=== PATIENT | male | born 1945 | race Caucasian/White ===

== ENCOUNTER → 2016-09-28 | Outpatient (CLI) | payer OTHER, MEDICARE ==
--- NOTE | 2016-09-28 12:38 | DX ---
PA and Lateral Chest Clinical Indications: Bronchitis in a 70-year-old male. Comparison: June 16, 2013. Findings: No focal pulmonary consolidation is identified. Minimal basilar opacities are presumably at electasis.. There is hyperexpansion seen with flattening of the hemidiaphragms noted. .Peribronchial thickening is noted. The heart size and pulmonary vascularity are normal. Pleural surfaces and bony t horax are negative for acute abnormality. Aortic tortuosity is noted which can be associated with sys temic hypertension. Impression: 1. Findings suggestive of COPD/chronic bronchitis are noted. 2. See above report for additional findings.
== END ==
LOC: BMCIMAGING 11:16
PROVIDERS: ATTEND Internal Medicine
DX: R91.8 Other nonspecific abnormal finding of lung field (principal)

== ENCOUNTER 2017-03-09 05:25 | Inpatient (IN) | payer OTHER, MEDICARE ==
--- NOTE | 2017-03-08 16:29 | GHP ---
[f rep st] PREOP HISTORY AND PHYSICAL DATE OF ADMISSION: 03/09/2017 HISTORY: Andres is a pleasant 71-year-old gentleman who has had a very long history over 20 years of low back pain. More recently, his symptoms have changed and have also become predominantly left lower extremity pain. The pain starts in the sciatic notch and radiates toward the anterior thigh and the left anterior knee. In the distant past, the patient also had right lower extremity pain. The patient denies any paresthesias. On a visual analog scale of 1-10 his daily pain is an 8. Patient denies any loss of strength, footdrop or loss of bowel or bladder control. Treatments have included an epidural steroid injection, Medrol Dosepak, physical therapy, back brace, anti-inflammatories and chiropractics. SOCIAL HISTORY: Negative for tobacco use and positive for social use of alcohol. The patient enjoys skiing, fly fishing and biking. FAMILY HISTORY: Significant for cancer. PAST MEDICAL HISTORY: Significant for cataracts, gastroesophageal reflux, hypercholesterolemia, bilateral hearing loss and a left Mejia syndrome. PAST SURGICAL HISTORY: Right total knee arthroplasty and cataract surgery. ALLERGIES: None. MEDICATIONS: Lipitor, omeprazole and oxycodone p.r.n. REVIEW OF SYSTEMS: Negative for a 10-point review of pertinent positives. PHYSICAL EXAMINATION: VITAL SIGNS: The patient weighs 218 pounds and is 6 feet 2 inches tall. CARDIAC: Regular rate and rhythm without detectable murmur , rub or gallop. LUNGS: Clear to auscultation. He has no wheezing or rhonchi. NEUROLOGIC EXAMINATION: Shows bilateral lower extremity strength to be 5/5 throughout with the exception of the left quadriceps, 4+5. Light touch is diminished along the medial aspect of the left knee, but does not radiate below the knee. Reflexes are 1/4 for patellar and Achilles reflexes are absent bilaterally. Straight leg raising is negative x2. Evaluation of his spine shows the patient to have a list to the right. He is tender to palpation in the left sciatic notch. Toes are bilaterally downgoing on Babinski exam and there is no clonus. He also has no evidence of footdrop. RADIOGRAPHIC STUDIES: MRI of the lumbar spine and plain films were reviewed. The patient has mild to moderate degenerative disk disease at L2-3. L3-4 shows a grade 1 degenerative spondylolisthesis with bilateral foraminal stenosis and severely profound central stenosis. L4-5 shows severe central stenosis as well. IMPRESSION: 1. Profound spinal stenosis at L3-4 and severe stenosis L4-5 with neurogenic claudication. 2. Left L3 and L4 radiculopathy with quadriceps weakness. 3. Grade 1 degenerative spondylolisthesis at L3-4. PLAN: Andres has elected to proceed with surgery given his symptoms have not improved and are quite disabling. The patient will undergo an L3-4, L4-5 laminectomy, transforaminal lumbar interbody fusion with posterior fusion and instrumentation using segmental instrumentation. The patient understands the potential risks, benefits, and possible complications including, but not limited to dural tear with CSF leak, meningitis, nerve root injury, partial or complete paralysis, infection, need for further surgery, nonunion, junctional breakdown, cauda equina syndrome, DVT, PE, pneumonia, stroke, heart attack, hemorrhage, blindness, and . His questions have been answered thoroughly. The patient will be n.p.o. after midnight tonight. I would anticipate approximately a 3-night hospital stay including the day of surgery. He may require some home health services postoperatively as well. Copy requested to: S[facility]NEY /[id number]/MODL MTDD
[2017-03-09] MEDS ORDERED: ceFAZolin 2 GM/DEXTROSE 100 ML IV ONE (06:00)
[2017-03-09] MEDS ORDERED: LIDOCAINE 1% 2 ML INJ ID PRN (06:15)
[2017-03-09] MEDS ORDERED: LR 1,000 ML IV ONE (06:15)
[2017-03-09] MEDS ORDERED: LIDOCAINE 1% 2 ML INJ ONE (06:22)
[2017-03-09] MEDS ORDERED: MIDAZOLAM 2 MG/2 ML VIAL IVP ONE (07:00)
--- NOTE | 2017-03-09 07:00 | PDANEPAE ---
ANE History of Present Illness Spinal stenosis ANE Past Medical History - Cardiovascular History Hx Hypertension: No Hx Arrhythmias: No Hx Chest Pain: No Hx Coronary Artery / Peripheral Vascular Disease: No Hx CHF / Valvular Disease: No Hx Palpitations: No Cardiovascular History Comment: HYPERLIPIDEMIA - Pulmonary History Hx COPD: No Hx Asthma/Reactive Airway Disease: No Hx Recent Upper Respiratory Infection: No Hx Oxygen in Use at Home: No Hx Sleep Apnea: No Sleep Apnea Screening Result - Last Documented: Positive Pulmonary History Comment: PNEUMONIA 25 YRS AGO - Neurologic History Hx Cerebrovascular Accident: No Hx Seizures: No Hx Dementia: No - Endocrine History Hx Diabetes: No - Renal History Hx Renal Disorders: No - Liver History Hx Hepatic Disorders: No - Neurological & Psychiatric Hx Hx Neurological and Psychiatric Disorders: No - Cancer History Hx Cancer: Yes Cancer History Comment: BASAL CELL - MOHS X4 - Congenital Disorder History Hx Congenital Disorders: No - GI History Hx Gastrointestinal Disorders: Yes Gastrointestinal History Comment: ACID REFLUX. BARRETS ESOPHAGUS - Other Health History Other Health History: NEG - Chronic Pain History Chronic Pain: Yes (BACK PAIN & LEG PAIN) - Surgical History Prior Surgeries: TKA R. CATARACTS EDUARDO ANE Review of Systems - Exercise capacity METS (RN): 4 METS ANE Patient History - Allergies Allergies/Adverse Reactions: No Known Allergies Allergy (Unverified 03/01/17 16:06) - Home Medications Home Medications: Aspirin 03/08/17 [Last Taken Unknown] Atorvastatin Calcium 03/08/17 [Last Taken 03/09/17 04:00] CO Q-10 03/08/17 [Last Taken Unknown] Omeprazole 03/08/17 [Last Taken 03/09/17 04:00] - NPO status NPO Since - Liquids (Date): 03/08/17 NPO Since - Liquids (Time): 19:00 NPO Since - Solids (Date): 03/08/17 NPO Since - Solids (Time): 18:30 - Smoking Hx Smoking Status: Never smoked - Family Anes Hx Family Hx Anesthesia Complications: NEG ANE Labs/Vital Signs - Vital Signs Blood Pressure: 137/88 Heart Rate: 62 Respiratory Rate: 16 O2 Sat (%): 94 Height: 186.69 cm Weight: 95.254 kg ANE Physical Exam - Airway Neck exam: FROM Mallampati Score: Class 2 Mouth exam: normal dental/mouth exam - Pulmonary Pulmonary: no respiratory distress - Cardiovascular Cardiovascular: regular rate and rhythym - ASA Status ASA Status: I ANE Anesthesia Plan Anesthesia Plan: general endotracheal anesthesia
[2017-03-09] MEDS ORDERED: fentaNYL 100 MCG/2 ML INJ ONE ×3 (07:09→08:32)
[2017-03-09] MEDS ORDERED: ROCURONIUM 50 MG/5 ML VIAL ONE ×2 (07:10→08:17)
[2017-03-09] MEDS ORDERED: LIDOCAINE 2% 5 ML SDV ONE (07:10)
[2017-03-09] MEDS ORDERED: DEXAMETHASONE 4 MG/ML VIAL ONE (07:10)
[2017-03-09] MEDS ORDERED: ONDANSETRON 4 MG/2 ML VIAL ONE ×2 (07:10→14:06)
[2017-03-09] MEDS ORDERED: PROPOFOL 200 MG/20 ML VIAL ONE ×2 (07:10→11:48)
[2017-03-09] MEDS ORDERED: THROMBIN (BOVINE) 20,000 UNIT VIAL TP ONE (07:15)
[2017-03-09] MEDS ORDERED: AVITENE POWDER 1 GM JAR TP ONE (07:15)
[2017-03-09] MEDS ORDERED: BACITRACIN 50,000 UNITS/10 ML SYR IRR ONE ×2 (07:16→11:20)
[2017-03-09] MEDS ORDERED: BUPIVACAINE 0.25% 30 ML SDV ONE (07:17)
[2017-03-09] MEDS ORDERED: CITRATE DEXTROSE SOLN 500 ML BAG ONE ×2 (07:17→07:45)
[2017-03-09] MEDS ORDERED: BUPIVACAINE/EPI 0.5% 30 ML SDV ONE (07:17)
[2017-03-09] MEDS ORDERED: PROPOFOL/EMULSION 500 MG/50 ML BOTTLE IV ONE (07:19)
[2017-03-09] MEDS ORDERED: REMIFENTANIL HCL 1 MG VIAL ONE ×3 (07:19→12:36)
--- NOTE | 2017-03-09 07:19 | PDHPUP ---
History & Physical Update H&P update statement: This history and physical update is based on an assessment of the patient which was completed after admission or registration (within 24 hours), but prior to the surgery/procedure. H&P update: H&P reviewed & patient examined, no change in patient's condition since H&P completed
[2017-03-09] MEDS ORDERED: diphenhydrAMINE 25 MG CAP PO PRN (07:57)
[2017-03-09] MEDS ORDERED: BISACODYL 10 MG SUPP PR PRN (07:57)
[2017-03-09] MEDS ORDERED: MAGNESIUM HYDROXIDE 30 ML UDCUP PO PRN (07:57)
[2017-03-09] MEDS ORDERED: LACTULOSE 20 GM/30 ML UDCUP PO PRN (07:57)
[2017-03-09] MEDS ORDERED: DIAZEPAM 10 MG/2 ML SYR IVP PRN (08:06)
[2017-03-09] MEDS ORDERED: HYDROCODONE/APAP 5/325 TAB PO PRN (08:06)
[2017-03-09] MEDS ORDERED: morphINE PF 10 MG/10 ML INJ ONE (08:32)
[2017-03-09] MEDS ORDERED: HYDROmorphONE/DILAUDID 2 MG/ML INJ ONE (11:21)
[2017-03-09] MEDS ORDERED: ceFAZolin 1 GM VIAL ONE ×2 (11:46)
[2017-03-09] MEDS ORDERED: ONDANSETRON 4 MG/2 ML VIAL IVP PRN (14:03)
[2017-03-09] MEDS ORDERED: fentaNYL 100 MCG/2 ML INJ IVP PRN (14:03)
[2017-03-09] MEDS ORDERED: NALOXONE HCL 0.4 MG/ML INJ IVP PRN (14:03)
--- NOTE | 2017-03-09 14:04 | POSTANESTH ---
Post Anesthetic Evaluation Cardiovascular Status: Normal, Stable Respiratory Status: Normal, Stable Level of Consciousness/Mental Status: Can Participate in Eval Pain Control: Adequate, Prn Tx Ordered Nausea/Vomiting Control: Adequate, Prn Tx Ordered Complications Possibly Related to Anesthesia: None Noted
[2017-03-09] MEDS ORDERED: HYDROmorphONE/DILAUDID 1 MG/ML SYR ONE (14:06)
[2017-03-09] MEDS: HYDROmorphONE/DILAUDID 1 MG/ML SYR IVP PRN ×3 (14:08→14:30)
--- NOTE | 2017-03-09 14:33 | POSTOPPROG ---
Post Op Note Date of Operation: 03/09/17 Surgeon: Misa Hassan [employer] Supervisor: Camila Henderson SA Anesthesiologist: MD David Anesthesia: GET(General Endotracheal) Pre-op Diagnosis: L3-4-5 severe stenosis, L3-4 degen spondylolisthesis Post-op Diagnosis: same Indication: LLE pain Procedure: L3-5 lami, TLIF, Post fusion/instrumentation Findings: profound spinal stenosis L3-5, spondylolisthesis L3-4, facet OA Inf/Abcess present in the surg proc area at time of surgery?: No Depth: Deep Incisional (Fascial) EBL: 300 cc Complications: None. No changes in neuromonitoring, icluding SSEPs, MEPs, and EMGs. Drains: Matt Mi
[2017-03-09] MEDS: SENNOSIDES/DOCUSATE SODIUM TAB PO SCH ×2 (15:25→21:16)
[2017-03-09] MEDS: morphINE SR 30 MG TAB PO SCH ×2 (15:25→21:16)
[2017-03-09] MEDS: METOCLOPRAMIDE 10 MG/2 ML VIAL IVP SCH ×3 (15:26→23:32)
[2017-03-09] MEDS: ACETAMINOPHEN 500 MG TAB PO SCH ×2 (15:40→21:16)
[2017-03-09] MEDS: NS 1,000 ML IV SCH ×2 (15:41→23:32)
[2017-03-09] MEDS: oxyCODONE IR 5 MG TAB PO PRN ×3 (15:43→21:16)
[2017-03-09] MEDS: ceFAZolin 2 GM/DEXTROSE 100 ML IV SCH ×2 (15:45→21:16)
[2017-03-09] MEDS: DIAZEPAM 5 MG TAB PO PRN (23:32)
[2017-03-10] MEDS: oxyCODONE IR 5 MG TAB PO PRN ×5 (03:18→21:10)
[2017-03-10 05:04] LABS: HEMATOCRIT 36.9 % (40.0-51.0); HEMOGLOBIN 12.4 g/dL (13.7-17.5)
[2017-03-10] MEDS: ceFAZolin 2 GM/DEXTROSE 100 ML IV SCH ×3 (06:09→21:10)
[2017-03-10] MEDS: METOCLOPRAMIDE 10 MG/2 ML VIAL IVP SCH ×4 (06:10→23:47)
[2017-03-10] MEDS: ACETAMINOPHEN 500 MG TAB PO SCH ×3 (06:10→21:10)
[2017-03-10] MEDS: SENNOSIDES/DOCUSATE SODIUM TAB PO SCH ×2 (08:49→21:10)
[2017-03-10] MEDS: morphINE SR 30 MG TAB PO SCH ×2 (08:50→21:10)
[2017-03-10] MEDS: POLYETHYLENE GLYCOL 3350 17 GM PKT PO PRN (08:52)
[2017-03-10] MEDS: ONDANSETRON DISINTEGRATING 4 MG TAB PO PRN (10:19)
[2017-03-10] MEDS: ONDANSETRON 4 MG/2 ML VIAL IVP PRN (10:24)
--- NOTE | 2017-03-10 13:13 | SOAPPROG ---
SOAP Progress Note Assessment/Plan: Assessment: post op day 1, s/p L3-5 lami, tlif, post fusion, instrumentation. Pt doing well. Leg pain relieved completely. Plan: cont PT and OT. Pain reasonably controlled. Cont. iv abx while drain is in. Plan: 03/10/17 13:10 Subjective: Pt states legs feel good. Incision pain tolerable. Walked with PT and worked with OT, also. No appetite. Objective: Vital Signs Temp Pulse Resp BP Pulse Ox 36.7 C 73 15 103/68 95 03/10/17 07:17 03/10/17 07:17 03/10/17 07:17 03/10/17 07:17 03/10/17 07:17 Laboratory Results 03/10/17 04:48 03/09/17 03/10/17 03/11/17 05:59 05:59 05:59 Intake Total 4800 Output Total 1675 Balance 3125 Lumbar wound with mild serosanguinous drainage. BLE motor 5/5. Ana's negative x 2. Drain functioning properly. ICD10 Worksheet Patient Problems: Problems Problem Status Onset Lumbar stenosis with neurogenic claudication Acute - ICD10 Problem Qualifiers (1) Lumbar stenosis with neurogenic claudication
[2017-03-10] MEDS: DIAZEPAM 5 MG TAB PO PRN (23:47)
[2017-03-11] MEDS: oxyCODONE IR 5 MG TAB PO PRN ×3 (02:11→15:37)
[2017-03-11] MEDS: METOCLOPRAMIDE 10 MG/2 ML VIAL IVP SCH ×4 (05:30→23:01)
[2017-03-11] MEDS: ceFAZolin 2 GM/DEXTROSE 100 ML IV SCH (05:30)
[2017-03-11] MEDS: ACETAMINOPHEN 500 MG TAB PO SCH ×3 (05:31→23:02)
[2017-03-11] MEDS: ONDANSETRON 4 MG/2 ML VIAL IVP PRN (08:45)
[2017-03-11] MEDS ORDERED: NON-FORMULARY NEW DRUG (Omeprazole [Omeprazole] 40 MG) PO SCH (09:00)
[2017-03-11] MEDS ORDERED: NON-FORMULARY NEW DRUG (Atorvastatin Calcium [Lipitor 80 Mg] 80 MG) PO SCH (09:00)
[2017-03-11] MEDS: SENNOSIDES/DOCUSATE SODIUM TAB PO SCH ×2 (09:11→23:02)
[2017-03-11] MEDS: ATORVASTATIN CALCIUM 40 MG TAB PO SCH (09:11)
[2017-03-11] MEDS: PANTOPRAZOLE SODIUM 40 MG TAB PO SCH (09:11)
[2017-03-11] MEDS: morphINE SR 30 MG TAB PO SCH (09:11)
--- NOTE | 2017-03-11 17:41 | SOAPPROG ---
SOAP Progress Note Assessment/Plan: Assessment: post op day 1, s/p L3-5 lami, tlif, post fusion, instrumentation. Pt doing well. Leg pain relieved completely. Plan: cont PT and OT. Pain reasonably controlled. Cont. iv abx while drain is in. Plan: 03/10/17 13:10 03/11/17 17:38 post op day 2. Pt doing well overall. Nausea has resolved. Constipation: will give suppository Cont PT and OT. Probable discharge home tomorrow. Subjective: Pt concerned about nausea. Mild new Left anterior knee tingling. Pain well controlled. Objective: Vital Signs Temp Pulse Resp BP Pulse Ox 36.6 C 91 14 121/74 H 92 03/11/17 15:41 03/11/17 15:41 03/11/17 15:41 03/11/17 15:41 03/11/17 15:41 Laboratory Results 03/10/17 04:48 03/10/17 03/11/17 03/12/17 05:59 05:59 05:59 Intake Total 4800 1750 200 Output Total 1675 2125 40 Balance 3125 -375 160 BLE motor 5/5. Ana's negative x 2. Decreased sensation left anterior knee, but strength good. SLR negative x 2. Drain functioning well. ICD10 Worksheet Patient Problems: Problems Problem Status Onset Lumbar stenosis with neurogenic claudication Acute - ICD10 Problem Qualifiers (1) Lumbar stenosis with neurogenic claudication
[2017-03-11] MEDS ORDERED: BISACODYL 10 MG SUPP PR ONE (17:43)
[2017-03-11] MEDS: ONDANSETRON DISINTEGRATING 4 MG TAB PO PRN (19:35)
[2017-03-11] MEDS: POLYETHYLENE GLYCOL 3350 17 GM PKT PO PRN (20:56)
[2017-03-11] MEDS: morphINE SR 15 MG TAB PO SCH (23:02)
[2017-03-12] MEDS: oxyCODONE IR 5 MG TAB PO PRN ×2 (02:30→15:48)
[2017-03-12] MEDS: DIAZEPAM 5 MG TAB PO PRN (02:30)
[2017-03-12] MEDS: ACETAMINOPHEN 500 MG TAB PO SCH ×2 (05:56→15:12)
[2017-03-12] MEDS: METOCLOPRAMIDE 10 MG/2 ML VIAL IVP SCH ×4 (05:56→18:04)
[2017-03-12] MEDS: ONDANSETRON DISINTEGRATING 4 MG TAB PO PRN (08:01)
[2017-03-12] MEDS: ATORVASTATIN CALCIUM 40 MG TAB PO SCH (08:45)
[2017-03-12] MEDS: morphINE SR 15 MG TAB PO SCH (08:45)
[2017-03-12] MEDS: SENNOSIDES/DOCUSATE SODIUM TAB PO SCH (08:45)
[2017-03-12] MEDS: PANTOPRAZOLE SODIUM 40 MG TAB PO SCH (08:46)
[2017-03-12] MEDS ORDERED: PROMETHAZINE HCL 25 MG/ML INJ IVP PRN (09:43)
[2017-03-12 16:05] VITALS: BP 119/70; PULSE 90; RESP 16; TEMP 98.2; O2SAT 92
--- NOTE | 2017-03-12 18:09 | SOAPPROG ---
SOAP Progress Note Assessment/Plan: Assessment: post op day 1, s/p L3-5 lami, tlif, post fusion, instrumentation. Pt doing well. Leg pain relieved completely. Plan: cont PT and OT. Pain reasonably controlled. Cont. iv abx while drain is in. Plan: 03/10/17 13:10 03/11/17 17:38 post op day 2. Pt doing well overall. Nausea has resolved. Constipation: will give suppository Cont PT and OT. Probable discharge home tomorrow. 03/12/17 18:08 post op day 3. Pt had significant nausea and constipation. Better now. Ready for discharge. Subjective: Pt states he wants to go home. No leg pain. Nausea has subsided. Objective: Vital Signs Temp Pulse Resp BP Pulse Ox 36.8 C 90 16 119/70 92 03/12/17 16:00 03/12/17 16:00 03/12/17 16:00 03/12/17 16:00 03/12/17 16:00 Laboratory Results 03/10/17 04:48 03/11/17 03/12/17 03/13/17 05:59 05:59 05:59 Intake Total 1750 800 Output Total 2125 100 150 Balance -375 700 -150 BLE motor 5/5. Ana's negative x 2. Slight decreased sensation left anterior knee. Drain is out. ICD10 Worksheet Patient Problems: Problems Problem Status Onset Lumbar stenosis with neurogenic claudication Acute - ICD10 Problem Qualifiers (1) Lumbar stenosis with neurogenic claudication
--- NOTE | 2017-03-13 09:34 | GDS ---
[f rep st] DISCHARGE SUMMARY HOSPITAL COURSE: The is a pleasant 71-year-old gentleman with a long history of low back pain and b ilateral lower extremity pain, predominantly of left lower extremity. He has tried physical therapy , anti-inflammatories, back brace, epidural steroid injection, chiropractics, and on a Medrol dose p ack. He was having difficulty with ambulation. On MRI found to have profound spinal stenosis at L3 -4 and severe stenosis at L4-5. He also has a spondylolisthesis, degenerative in nature, grade 1 at L3-4. On the day of admission, he underwent an L3-4, L4-5 laminectomy, transforaminal lumbar interbody fus ion, posterior fusion with instrumentation using pedicle screws. Intrathecal narcotics were given. A 10 flat CLAUDE drain was also placed deep to the fascial layer. Findings at the time of surgery incl uded profound spinal stenosis L3-4 and L4-5. He also had a spondylolisthesis identified preoperativ patricia, also confirmed intraoperatively at L3-4, and quite profound facet arthropathy L3-4, L4-5. Ther e were no neurologic changes on SSEPs, EMGs, and motor evoked potentials. Postoperatively, the patient overall did very well. Pain was initially managed with MS Contin 30 mg 1 p.o. twice daily, and then decreased to MS Contin 15 mg 1 p.o. twice daily, and Percocet p.r.n. f or breakthrough pain. He was kept on Ancef until his drain was removed on postop day #3. He was se en at [facility] Therapy [facility] Occupational [facility], and became independent in ambulation and activities of daily living. His wound showed no signs of infection. It was clean and dry at all times. The patient noted immediate relief of bilateral lower extremity pain on upon ambulation. He did hav e some mild tingling around the left anterior aspect of the knee, but it was improving on the day of discharge. Overall the patient has done exceedingly well, but he did struggle with constipation and nausea. Ul timately, Phenergan helped him with nausea the best. He is being discharged home with the following prescriptions: Valium 5 mg 1 p.o. q.8 hours p.r.n., Keflex 500 mg 1 p.o. q.i.d. x3 days, MS Contin 15 mg 1 p.o. q.12 hours for 1 month, Percocet 5/325 one p.o. q.6 hours p.r.n. for breakthrough pain . The patient has a postoperative appointment in my office already scheduled in advance. His tommy gates do a daily dry dressing change. He will wear his back brace at all times, except for showers. Th ey are to call me immediately or go to the nearest emergency room if they are concerned about any co mplications or potential infection. Overall the patient has done exceedingly well. /[id number]/MODL
--- NOTE | 2017-03-16 06:46 | GOP ---
[f rep st] OPERATIVE REPORT DATE OF OPERATION: 03/09/2017 SURGEON: Misa Morales MD AIR TRAFFIC COORDINATOR: Basilio Henderson SA ANESTHESIA: General endotracheal intubation. ANESTHESIOLOGIST: Dr. Basilio Hernandez PREOPERATIVE DIAGNOSIS: 1. Grade 1 degenerative spondylolisthesis L3-4, with profound spinal stenosis. 2. L4-5 severe spinal stenosis. 3. Left L3 and L4 radiculopathies, with quadriceps weakness. POSTOPERATIVE DIAGNOSIS: 1. Grade 1 degenerative spondylolisthesis L3-4, with profound spinal stenosis. 2. L4-5 severe spinal stenosis. 3. Left L3 and L4 radiculopathies, with quadriceps weakness. PROCEDURE PERFORMED: L3-4 and L4-5 complete laminectomies and facetectomies, foraminotomies, transf oraminal lumbar interbody fusions, and posterior fusion with instrumentation, use of autogenous bone graft, allogeneic crushed cancellous bone graft and demineralized bone matrix, and size large bone morphogenic protein, and injection of 0.3 mg of intrathecal Duramorph and 25 mcg of intrathecal fent anyl for postoperative pain control. FINDINGS: ESTIMATED BLOOD LOSS: 300 cc. INDICATIONS: Andres is a pleasant 71-year-old gentleman who states he has had a very long history of l ow back pain dating back about 20 years ago. More recently he has had acute onset of left lower ext remity pain without any preceding trauma. Pain initially begins in the sciatic notch, radiates towa rd the anterior thigh and left anterior knee. The patient has tried numerous nonoperative treatment s, but despite those he continues to have quite severe left lower extremity pain and paresthesias. On a 1-10 scale his daily pain is an 8. He has tried an epidural steroid injection, anti-inflammato douglas, Medrol Dosepak, physical therapy, use of a back brace, and chiropractics. The patient has kimberly cted to undergo surgery based upon my recommendations. No guarantees were given in regard to surgic al outcome. Potential risks, benefits, possible complications have been thoroughly discussed with t nas patient including, but not limited to, dural tear with CSF leak, meningitis, nerve root injury, p artial or complete paralysis, infection, junctional breakdown requiring further surgery, dural tear, hematoma, seroma, as well as potential medical problems including, but not limited to DVT, PE, pneu monia, stroke, heart attack, hemorrhage, blindness, and . The patient's questions have been an swered thoroughly. DESCRIPTION OF PROCEDURE: After obtaining both written and verbal consent from the patient, he was brought to the operating room where he underwent a general endotracheal intubation. The patient rec eived IV antibiotics. Kinney catheter was placed. The patient was then rolled to the prone position on the Matt table. The O-arm was used to obtain a lateral lumbar x-ray using an 18-gauge needle in the dorsal aspect of the lumbar spine for localization. The O-arm and the needle were removed. The axillae were padded with rolled towels. The face and eyes were protected and no pressure was u vania them. Somatosensory-evoked potentials, motor-evoked potentials, and EMGs were set up, and basel page were normal. A lumbar prep and drape was performed in the normal sterile fashion. A timeout w as performed, with the entire operating room team, confirming patient's name, date of , planned surgical procedure including levels, antibiotics given allergies to medications. After a sterile prep and drape, a 10-blade knife was used to create a midline dorsal incision from a pproximately L3-L5. The incision was brought down through skin, subcutaneous tissues, into the over lying dorsal fascia. Paraspinal muscles were stripped in a subperiosteal fashion. Self-retaining r etractors were placed. An intraoperative localizer x-ray was obtained. The marker was then removed . The incision was then elongated slightly distally another inch. Further dissection was carried o ut to the transverse processes bilaterally at L3, L4, and L5. The patient was found to have very pr ofound facet arthropathy at L3-4 and L4-5. There was also hypermobility at both levels, but much mo re significantly at L3-4 based on the patient's spondylolisthesis. The O-arm was then brought in, a nd an AP and a lateral view were obtained, followed by a CT scan 3-dimensional spin. Then using O-a rm stereotactic guidance, pedicle screw sites were identified using both the O-arm and basic anatomi c landmarks, using the lateral border of the facet joint with the intersection of the midline of the transverse process. This was initially done on the left starting at L3 and sequentially moving to L4 and L5 on the left. Neuro monitoring was utilized with a NIM probe when the gear shift was utili zed to palpate the proposed pedicle screw site. The NIM probe provided feedback of no reaction up t o 20 mA at L3, L4, and L5 on the left. A ball-tip probe was then used to palpate the proposed screw sites, and it was felt there was good bone all the way throughout the circumferential depths of the se sites. Decortication using a rat-toothed rongeur of the facet joints on the left at L3-4, L4-5, and the transverse processes was performed, followed by placement of crushed cancellous bone graft m ixed with demineralized bone matrix prior to placement of pedicle screws. Then at this time the lef t L3 screw that was placed was a 6.5 x 45 mm reduction screw. It stimulated to greater than 20 mill iamps. The left L4 screw was 6.5 x 45 mm, also stimulating greater than 20 milliamps. The left L5 screw I placed was a 6.5 x 45 mm screw, also stimulated to greater than 20 milliamps, with excellent purchase. Then the same was performed on the right. The right L3 screw was 6.5 x 45 mm reduction, right L4 with 6.5 x 45 mm, and right L5 was 6.5 x 45 mm. The same process was repeated on the [facility] t side as was the left. Then the O-arm was brought in again for another 3-dimensional stereotactic viewing. It showed that the left L3 screw was medial, broaching the midline canal. All other screw s were in excellent position. Therefore, the left L3 screw was removed, and a ball-tipped probe was used to palpate the depth. Indeed, there was a breakout of the pedicle medial-rogers. Then under lo upe magnification, again, and under O-arm guidance, and basic anatomic landmarks, a new pedicle scre w site was started just lateral approximately 3-4 mm from the old site. This stimulated to greater than 20 milliamps and felt it had good purchase and good bone circumferentially around the entire de pths of it using a ball-tip probe. A 5.5 x 45 mm reduction screw was placed on the left at L3. Ano ther O-arm scan was performed, showing the left L3 screw to be in excellent position, as were the re st. Again, decortication of the transverse processes and the facet joints on the right from L3-L5 w as performed prior to packing of bone graft. Then, at this time, a 5.5 mm titanium keena, that had be en precut and precontoured into lordosis, measuring 80 mm in length, was placed into the right side and an 80 mm keena placed on the left side. The locking screw caps were then placed and tightened brain n. Slight distraction was placed on the right at L3-4 to improve the mild degenerative scoliosis. There were no changes in spinal cord monitoring. The locking caps were then tightened down using a counter torque and torque wrench at all 3 of the screws. Then, at this point, under loupe magnifica tion, a 5 mm round bur was then used to decorticate the facet joints L3-4 and L4-5 bilaterally, and these were severely hypertrophied and decorticate the lamina at L3, L4, and L5 to gain better access to the canal. The patient's bone quality was excellent and hypertrophied. Care was taken to prote ct the dura at all times. At L3-4 there was profound spinal stenosis, mainly due to ligamentum flav um hypertrophy and facet arthropathy. At L4-5 he had severe spinal stenosis also, again mainly due to ligamentum flavum hypertrophy. The ligamentum flavum was removed using a 3 and 4 mm Kerrison and undercutting. Care was taken to protect the dura and cauda equina at all times, often using a jae y. There were no adhesions or dural tears. The facet joints were completely removed using a rongeu r and a 5 mm round bur to gain access to the transforaminal approach. It should be mentioned that t he laminectomy needed to be wide and significant in order to fully decompress the patient, as he did have severe to profound stenosis and was not simply for access for the transforaminal interbody fus ion. Then under loupe magnification the L4-5 level was initially addressed. A was used to palpate ventral to the thecal sac and then a 1 x 1 myriam moistened with thrombin was placed over the dura to protect it using a Love nerve root retractor as well. The left L4 exiting nerve root wa s protected with a 2nd Love nerve root retractor. A 15-blade knife was used to create an annulotomy at the L4-5 disk space and trial primo were utilized. The largest trial that had a good fit was 14 mm. Therefore, a 10 x 27 x 14 mm Lucent Ti-Shah porous-coated PEEK cage was chosen, packed with autogenous bone graft, as well as a small amount of bone morphogenic protein. It was tamped into po sition on the left at L4-5. The patient's bone quality was so excellent, that on the last few taps of the PEEK cage going into place it fractured superiorly, posteriorly, and on the left. I was able to tamp in the fragment that had fractured off. Although it was close to the dura, it was not touc keyona the midline thecal sac nor the exiting nerve root at any time and was at least 2-3 mm away. Th en, a transforaminal interbody fusion was performed on the right as well to gain increased stability . The complete facetectomy had been performed prior. Again, under loupe magnification the anulus w as incised on the right at L4-5 and further disk was removed. Trials were utilized again and given a 14 mm was quite large on the left, it was chosen to use an 11 mm PEEK cage on the right. This young ped in very nicely and did indeed still have bone purchase. There were no changes in spinal cord mo nitoring at this point. Then the L3-4 level was performed. This was performed in the exact same fa shion, while taking care to protect the cauda equina and the exiting nerve roots, and under loupe ma gnification an annulotomy was created at L3-4. Pituitaries were used in different sizes to remove t he disk space, and then trial primo were utilized. The best fit was a 10 mm. Therefore, a 10 x 2 7 x 10 mm Ti-Shah porous-coated PEEK cage packed with autogenous bone graft, and bone morphogenic pr otein was tamped in a posterolateral position. There were no changes in spinal cord monitoring and using a [place] and a Winger for these bone grafts were well seated and not causing any compressiv e pathology on any nervous structure. An AP and a lateral fluoroscopic view showed good position of all the internal fixation at this point, including PEEK cages L3-4 and L4-5 bilaterally. At this t selin the remainder of the size large bone morphogenic protein was packed in a posterolateral position to augment fusion, in addition to further crush cancellous bone graft and autogenous bone graft vishal ed from the spinous processes and the laminectomy. Then at this time 0.3 mg of intrathecal Duramorp h and 25 mcg of intrathecal fentanyl were placed with a 30-gauge needle in the subarachnoid space fo r postoperative pain control. Sponge and needle count were correct. Hemostasis was obtained. A 10 -flat CLAUDE drain was placed deep to the fascial layer and sewn in with a 2-0 nylon suture. The wound was then closed after the drain had been placed and final x-rays had been obtained showing good posi tion of internal fixation and PEEK cages L3-L5. The wound was closed using a #1 Vicryl in the deep fascial layer, followed by an 0 Vicryl, 2-0 undyed Vicryl, and skin jocelin. Sterile dressing was a pplied. Patient was rolled to the supine position. Kinney catheter was left in place. Back brace w as placed. The patient was extubated in the operating room and brought to the recovery room in sati sfactory condition. COMPLICATIONS: None. There were no changes in spinal cord monitoring. DRAINS: 1 flat CLAUDE #10 drain. POSTOPERATIVE PLAN: Close neurologic observation, close airway observation, PT, OT, and pain contro lJonathan Alanis #: [id number]
== END 2017-03-12 19:08 | disposition home or self-care (01) | DRG 460 ==
LOC: F3N 05:25
PROVIDERS: ADMIT Orthopaedic Surgery Orthopaedic Surgery of the Spine; ATTEND Orthopaedic Surgery Orthopaedic Surgery of the Spine
PROC: 0ST20ZZ Resection of Lumbar Vertebral Disc, Open Approach (ICD-10-PCS; principal; 2017-03-09 07:15)
PROC: 0SG10AJ Fusion of 2 or more Lumbar Vertebral Joints with Interbody Fusion Device, Posterior Approach, Anterior Column, Open Approach (ICD-10-PCS; principal; 2017-03-09 07:15)
PROC: 01NB0ZZ Release Lumbar Nerve, Open Approach (ICD-10-PCS; principal; 2017-03-09 07:15)
PROC: 4A1004G Monitoring of Central Nervous Electrical Activity, Intraoperative, Open Approach (ICD-10-PCS; principal; 2017-03-09 07:15)
DX: M43.16 Spondylolisthesis, lumbar region (principal); M48.06 Spinal stenosis, lumbar region; M51.36 Other intervertebral disc degeneration, lumbar region; M54.16 Radiculopathy, lumbar region; K21.9 Gastro-esophageal reflux disease without esophagitis; E78.00 Pure hypercholesterolemia, unspecified; G90.2 Horner's syndrome; Z96.651 Presence of right artificial knee joint
CPT/HCPCS: 97116-GP; 97161-GP; 97165-GO; 97530-GO; 97530-GP; 97535-GO; C1713; C1762; G8978-GP-CI; G8978-GP-CJ; G8979-GP-CI; G8980-GP-CI; G8987-GO-CI; G8988-GO-CI; G8989-GO-CI; J0690; J1100; J1170; J2250; J2274; J2405; J2550; J2704; J2765; J3010; J7060